=== PATIENT | female | born 1980 | race Caucasian/White ===

== ENCOUNTER 2022-09-24 15:35 | Emergency (ER) | payer OTHER ==
[~2022-09-24] VITALS: Ht 160 cm; Wt 120.0 kg
[2022-09-24 15:41] VITALS: BP 196/122
[2022-09-24] MEDS ORDERED: BACITRACIN ZINC OINT UDPKT TOP ONE (16:15)
[2022-09-24] MEDS ORDERED: TETANUS, DIPHTHERIA, PERTUSSIS VAC/PF 0.5ML (>10YR OLD) IM ONE (16:15)
[2022-09-24] MEDS ORDERED: ACETAMINOPHEN 325MG TABLET PO ONE (16:15)
[2022-09-24] MEDS ORDERED: LIDOCAINE HCL/EPINEPHRINE 1%-EPI 1:100,000 20 ML VIAL INFIL ONE (16:15)
[2022-09-24] MEDS ORDERED: ACET-2708 MT (17:36)
[2022-09-24] MEDS ORDERED: AMOX1TAB16 MT (17:36)
[2022-09-24] MEDS ORDERED: AMOXICILLIN/POTASSIUM CLAVULANATE 875/125MG TAB PO ONE (17:45)
== END 2022-09-24 17:58 | disposition home or self-care (01) ==
LOC: ER 15:35
DX: S81.811A Laceration without foreign body, right lower leg, initial encounter (principal); W54.0XXA Bitten by dog, initial encounter; Y93.89 Activity, other specified; Y92.89 Other specified places as the place of occurrence of the external cause; Y99.8 Other external cause status; I10 Essential (primary) hypertension
CPT/HCPCS: 12002; 73590; 81025; 90471; 90715; 99284; J3490; Z7610